=== PATIENT | female | born 1985 | race Caucasian/White ===

== ENCOUNTER 2023-09-10 07:09 | Day surgery (SDC) | payer OTHER ==
[2023-09-05 14:35] VITALS: BMI 33.7
[2023-09-10 07:41] VITALS: RESP 16; TEMP 97
[2023-09-10] MEDS ORDERED: LIDOCAINE 1% (10MG/ML) FOR IV START INTRADERMA ONE (07:45)
[2023-09-10] MEDS: LACTATED RINGERS 1,000 ML IV SCH ×2 (07:45→08:26)
[2023-09-10 07:47] LABS: Glucose,Whole Blood 123 mg/dL (70-110)
[2023-09-10] MEDS ORDERED: LIDOCAINE 1% INJ 10MG/ML (20 ML MDV) ONE (08:27)
[2023-09-10] MEDS ORDERED: PROPOFOL 10 MG/ML 20 ML VIAL IV ONE (08:27)
--- NOTE | 2023-09-10 08:30 | P.GSHP ---
History of Present Illness H&P Date: 09/10/23 Chief Complaint: GERD This is a 29-year-old female presents today for EGD. Patient's points of GERD. Past Medical History Past Medical History: Asthma, Diabetes Mellitus, GERD/Reflux Additional Past Medical History / Comment(s): ENVIRONMENTAL ALLERGIES. 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 SINUS SX Past Anesthesia/Blood Transfusion Reactions: No Reported Reaction Smoking Status: Never smoker - Past Family History Brother(s) Family Medical History: Cancer Medications and Allergies Home Medications Medication Instructions Recorded Confirmed Type Loratadine [Claritin] 10 mg PO DAILY 09/05/23 09/10/23 History Montelukast [Singulair] 10 mg PO DAILY 09/05/23 09/10/23 History Pantoprazole [Protonix] 40 mg PO DAILY 09/05/23 09/10/23 History Semaglutide [Ozempic] 0.25 mg SQ WE 09/05/23 09/05/23 History Sucralfate [Carafate] 1 gm PO TID 09/05/23 09/10/23 History Allergies Allergy/AdvReac Type Severity Reaction Status Date / Time No Known Allergies Allergy Verified 09/10/23 07:26 Surgical - Exam Vital Signs Temp Pulse Resp BP Pulse Ox 97 F L 77 16 123/84 99 09/10/23 07:35 09/10/23 07:35 09/10/23 07:35 09/10/23 07:35 09/10/23 07:35 - General well developed, well nourished, no distress, moderate distress - Eyes PERRL - ENT normal pinna - Neck no masses - Respiratory normal expansion - Cardiovascular Rhythm: regular - Abdomen Abdomen: soft, non tender Results - Labs Abnormal Lab Results - Last 24 Hours (Table) 09/10/23 Range/Units 07:40 POC Glucose (mg/dL) 123 H (70-110) mg/dL Assessment and Plan Assessment: GERD. We'll perform EGD.
--- NOTE | 2023-09-10 08:40 | P.OP ---
Date of Procedure: 09/10/23 Preoperative Diagnosis: GERD Postoperative Diagnosis: Antral gastritis Sliding hiatal hernia Mild esophagitis Procedure(s) Performed: EGD Anesthesia: MAC Surgeon: Alek Bryant Pathology: other (Antrum, esophagus) Condition: stable Disposition: PACU Description of Procedure: The patient's placed on the endoscopy table in the lateral position. He received IV sedation. The gastro-/oropharynx passed in the esophagus and stomach. Scope some placed through the pylorus. The first and second portion of the duodenum appeared normal. Scope was then brought back the antrum and this appeared mildly inflamed. A biopsies performed. Scope was then retroflexed and there was a moderate sliding hiatal hernia. The GE junction was at 38 cm. The distal esophagus appeared mildly inflamed. A biopsies was performed. The proximal esophagus appeared normal. Scope was then withdrawn for patient.
[2023-09-10 09:21] VITALS: BP 108/66; PULSE 88
== END 2023-09-10 09:23 | disposition home or self-care (01) ==
LOC: ORWHC2ENDO 07:09
PROVIDERS: ATTEND Surgery
DX: K29.50 Unspecified chronic gastritis without bleeding (principal); K21.00 Gastro-esophageal reflux disease with esophagitis, without bleeding; K44.9 Diaphragmatic hernia without obstruction or gangrene; J45.909 Unspecified asthma, uncomplicated; E11.9 Type 2 diabetes mellitus without complications; Z79.899 Other long term (current) drug therapy; Z79.84 Long term (current) use of oral hypoglycemic drugs
CPT/HCPCS: 81025; 88305; 43239; J2001; J2704

== ENCOUNTER → 2023-11-13 | Outpatient (CLI) | payer OTHER ==
[2023-11-13 12:16] LABS: Basophils # (A) 0.04 X 10*3/uL (0.00-0.10); Basophils % (A) 0.5 %; Eosinophils # (A) 0.16 X 10*3/uL (0.04-0.35); Eosinophils % (A) 2.1 %; HCT 37.8 % (37.2-46.3); HGB 11.7 g/dL (12.0-15.0); Lymphocytes # (A) 2.21 X 10*3/uL (0.90-5.00); Lymphocytes % (A) 28.7 %; MCH 25.3 pg (27.0-32.0); MCV 81.8 FL (80.0-97.0); Mean Platelet Volume 10.9 FL (9.5-12.2); Monocytes # (A) 0.46 X 10*3/uL (0.20-1.00); NRBC Per 100 WBC 0 X 10*3/uL (0.00-0.01); Neutrophils # (A) 4.81 X 10*3/uL (1.80-7.70); Neutrophils % (A) 62.4 %; Platelet Count 253 X 10*3/uL (140-440); RBC 4.62 X 10*6/uL (4.10-5.20); RDW 13.8 % (11.5-14.5)
== END | disposition home or self-care (01) ==
LOC: LABPAT 07:32
PROVIDERS: ATTEND Surgery
DX: Z01.818 Encounter for other preprocedural examination (principal); I49.8 Other specified cardiac arrhythmias; K21.9 Gastro-esophageal reflux disease without esophagitis
CPT/HCPCS: 36415; 85025; 93005

== ENCOUNTER 2023-11-19 06:40 | Day surgery (SDC) | payer OTHER ==
[~2023-11-19 06:40] MED LIST: LIDOCAINE 1% (10MG/ML) FOR IV START INTRADERMA PRN
[2023-11-19] MEDS ORDERED: HYDROmorphone 0.5 MG/0.5 ML SYRINGE IVP PRN (07:00)
[2023-11-19] MEDS: LACTATED RINGERS 1,000 ML IV SCH (07:41)
[2023-11-19] MEDS: HEPARIN SODIUM,PORCINE 5,000 UNIT/ML 1 ML VIAL SQ PRN (07:53)
[2023-11-19] MEDS: ONDANSETRON 4 MG/2 ML VIAL IVP ONE (07:53)
[2023-11-19] MEDS: DEXAMETHASONE SOD PHOSPHATE 4 MG/ML 1 ML VIAL IV ONE (07:53)
[2023-11-19] MEDS: ACETAMINOPHEN TAB 500 MG TAB PO PRN (07:53)
[2023-11-19] MEDS: FAMOTIDINE 20 MG/2 ML VIAL IVP ONE (07:53)
[2023-11-19 07:54] LABS: Glucose,Whole Blood 125 mg/dL (70-110)
[2023-11-19] MEDS ORDERED: NEOSTIGMINE 1 MG/ML 10 ML VIAL ONE (08:32)
[2023-11-19] MEDS ORDERED: KETOROLAC 15 MG/ML 1 ML VIAL ONE (08:32)
[2023-11-19] MEDS ORDERED: SUCCINYLCHOLINE CHLORIDE 200 MG/10 ML VIAL IV ONE (08:32)
[2023-11-19] MEDS ORDERED: PROPOFOL 10 MG/ML 20 ML VIAL IV ONE (08:32)
[2023-11-19] MEDS ORDERED: fentaNYL (PF) 50 MCG/ML 2 ML AMP ONE (08:32)
[2023-11-19] MEDS ORDERED: GLYCOPYRROLATE 0.2 MG/ML 2 ML VIAL ONE (08:32)
[2023-11-19] MEDS ORDERED: LIDOCAINE 1% INJ 10MG/ML (20 ML MDV) ONE (08:32)
[2023-11-19] MEDS ORDERED: ROCURONIUM 10 MG/ML (5 ML VIAL) IV ONE (08:32)
[2023-11-19] MEDS ORDERED: MIDAZOLAM 2 MG/2 ML VIAL ONE (08:32)
[2023-11-19] MEDS: BUPIVACAINE (PF) 0.25% 30 ML VIAL SQ ONE (08:37)
--- NOTE | 2023-11-19 09:46 | P.OP ---
Date of Procedure: 11/19/23 Preoperative Diagnosis: GERD Postoperative Diagnosis: GERD Procedure(s) Performed: laparoscopic Rowena fundoplication Anesthesia: WINIFRED Surgeon: Alek Bryant Estimated Blood Loss (ml): 5 Pathology: none sent Condition: stable Disposition: PACU Description of Procedure: HarThe patient was placed on the operating table in the supine position. The patient received general anesthesia. And was placed in dorsal lithotomy position. The patient was prepped and draped in the usual sterile fashion. The skin incision sites were anesthetized with 1% local Xylocaine. The skin was incised in the left periumbilical area and then using a blade less 5 mm trocar under direct visualization panel cavity was entered. After adequate insufflation the laparoscope was then placed into the peritoneal cavity. Next a 5 mm trochars placed in the right epigastric position. Another 5 millimeter trocar the right lateral position. Another 5 millimeter trocar in the left lateral position a 5 mm trocar is placed in the left epigastric position. And then the initial 5 mm trocar was exchanged for a 10 mm trocar. The left lateral lobe liver was retracted. The hernia was seen. The crural defect was then dissected using the Harmonic scissors device. A 360 crural dissection was performed the esophagus stomach was reduced back into the peritoneal Cavity. The crural defect was then closed using 2-0 Ethibond suture. Next the fundus of the stomach was mobilized using the Maxwell scissors device. and then a 58- [place]i bougie dilator was placed oropharynx passed into the esophagus and stomach the fundal plication wrap was then performed by grasping the fundus post eriorly and bringing it around the esophagus and stomach fundoplication was then performed using 2-0 Ethibond suture. Care was taken that the fundal location rested over top of the intra-abdominal esophagus. There was no injury seen to the stomach or esophagus. The dilator was then withdrawn. The abdomen was irrigated there is no bleeding seen. The trochars were then withdrawn and then skin incision sites were closed using 3-0 Monocryl suture Steri-Strips are applied. Patient thought procedure well and sent to recovery room in stable condition.
[2023-11-19 10:32] LABS: Glucose,Whole Blood 178 mg/dL (70-110)
[2023-11-19 12:01] VITALS: RESP 16
[2023-11-19 12:33] LABS: Glucose,Whole Blood 165 mg/dL (70-110)
[2023-11-19] MEDS: METOCLOPRAMIDE 5 MG/ML 2 ML VIAL IVP SCH (13:01)
[2023-11-19] MEDS: D5-0.45% NACL WITH KCL 20MEQ/L 1,000 ML IV SCH (13:01)
[2023-11-19] MEDS: HYDROmorphone 1 MG/ML 1 ML SYRINGE IVP PRN (13:10)
[2023-11-19] MEDS: SCOPOLAMINE 1 MG/72 HR PATCH TRANSDERM ONE (13:53)
[2023-11-19] MEDS: droPERidol 5 MG/2 ML VIAL IVP ONE (13:53)
[2023-11-19] MEDS ORDERED: DEXTROSE 50% SYRINGE 50 ML IVP PRN ×2 (16:10)
[2023-11-19 17:31] LABS: Glucose,Whole Blood 213 mg/dL (70-110)
[2023-11-19] MEDS: INSULIN ASPART (NovoLOG) 100 UNIT/ML VIAL SQ SCH (18:07)
[2023-11-19] MEDS: PANTOPRAZOLE 40 MG/10 ML VIAL IVP SCH (18:08)
[2023-11-19 20:10] LABS: Glucose,Whole Blood 186 mg/dL (70-110)
--- NOTE | 2023-11-20 03:48 | CONS ---
CONSULTATION Covering for Dr. Mohamud. REASON FOR CONSULTATION: Advice regarding diabetes mellitus and other medical issues, requested by Surgery. HISTORY OF PRESENT ILLNESS: This is a 38-year-old woman with a past medical history of multiple medical problems including diabetes mellitus, underwent laparoscopic Rowena fundoplication for GERD. The patient has been closely monitored. No chest pain. No palpitations. No fever. The blood sugar is 165. PAST MEDICAL HISTORY: Reviewed and include asthma, GERD, diabetes mellitus, type 2. MEDICATIONS: Carafate, dose and rest of medications reviewed. ALLERGIES: None. FAMILY HISTORY: History of brain cancer in family. SOCIAL HISTORY: No history of smoking, alcohol. REVIEW OF SYSTEMS: Fourteen-point review is negative except as mentioned earlier. PHYSICAL EXAMINATION: VITAL SIGNS: Pulse is 96, blood pressure 161/84. HEENT: Conjunctivae normal. NECK: No JVD. CARDIOVASCULAR: Breath sounds diminished at the bases. Scattered rhonchi. ABDOMEN: Soft. Status post surgery. LEGS: No edema. NERVOUS SYSTEM: Nonfocal. LABORATORY DATA: Glucose 165. ASSESSMENT: 1. Status post laparoscopic Rowena fundoplication for gastroesophageal reflux disease. 2. Diabetes mellitus, type 2. 3. Asthma. 4. History of gastroesophageal reflux disease. RECOMMENDATIONS AND DISCUSSION: This 38-year-old woman presented after surgery. At this time, I recommend to continue current medications and symptomatic treatment. Recommend Accu-Cheks a.c. and insulin coverage. Resume home medications. DVT prophylaxis. Incentive spirometry. We will follow the patient closely with you. Dr. Mohamud will follow tomorrow. MMODL / IJN: [id number] /
[2023-11-20 07:42] LABS: Glucose,Whole Blood 137 mg/dL (70-110)
[2023-11-20] MEDS ORDERED: HYDROcodone/APAP 5-325MG 1 EACH TAB PO PRN (08:25)
[2023-11-20 08:42] VITALS: BP 126/78; PULSE 89; TEMP 98.6
[2023-11-20] MEDS: ENOXAPARIN 40 MG/0.4 ML SYRINGE SQ SCH (08:45)
--- NOTE | 2023-11-20 11:48 | P.CONS ---
History of Present Illness - Reason for Consult Consult date: 11/20/23 Medical management Requesting physician: Alek Bryant - Chief Complaint Gastroesophageal reflux disease status post laparoscopic Rowena fundoplicat - History of Present Illness This is a 38-year-old female with past medical history significant for morbid obesity, BMI 35, gastroesophageal reflux disease, diabetes melitis, allergy induced asthma, status post laparoscopic Niesen fundoplication. Tolerated procedure well. Tolerating Niesen clear liquid diet. Blood sugars controlled. Hemoglobin A1c 6.2. Denies nausea vomiting or diarrhea. Reports no bowel movement, passing flatus. Decreased minimal shoulder pain. Ambulating, tolerating exertion well with no lightheadedness dizziness or focal deficits. Denies chest pain, palpitations or shortness of breath. Maintaining O2 sats in the high 90s on room air. Afebrile. Review of Systems ROS Statement: Those systems with pertinent positive or pertinent negative responses have been documented in the HPI. ROS Other: All systems not noted in ROS Statement are negative. Past Medical History Past Medical History: Asthma, Diabetes Mellitus, GERD/Reflux Additional Past Medical History / Comment(s): environmental allergies, thyroid nodules, hiatal hernia, Type II DM History of Any Multi-Drug Resistant Organisms: None Reported Additional Past Surgical History / Comment(s): teeth extraction as a teen, sinus sx Past Anesthesia/Blood Transfusion Reactions: No Reported Reaction Smoking Status: Never smoker - Past Family History Brother(s) Family Medical History: Cancer Additional Family Medical History / Comment(s): brain cancer Mother Family Medical History: Hypertension Father Family Medical History: Hypertension Medications and Allergies Home Medications Medication Instructions Recorded Confirmed Type Loratadine [Claritin] 10 mg PO DAILY PRN 09/05/23 11/19/23 History Montelukast [Singulair] 10 mg PO DAILY PRN 09/05/23 11/19/23 History Pantoprazole [Protonix] 40 mg PO QAM 09/05/23 11/19/23 History Semaglutide [Ozempic] 0.25 mg SQ WE 09/05/23 11/19/23 History Sucralfate [Carafate] 1 gm PO TID 09/05/23 11/19/23 History Acetaminophen Tab [Tylenol] 1,000 mg PO Q6HR PRN 11/13/23 11/19/23 History HYDROcodone/APAP 5-325MG [[place] 1 tab PO Q6HR PRN 2 Days #5 tab 11/20/23 Rx 5-325] Allergies Allergy/AdvReac Type Severity Reaction Status Date / Time No Known Allergies Allergy Verified 11/19/23 07:39 Physical Exam Vitals: Vital Signs Temp Pulse Resp BP Pulse Ox 11/20/23 07:37 98.6 F 89 16 126/78 97 11/20/23 01:22 98.0 F 80 16 113/71 95 11/19/23 20:00 16 11/19/23 18:58 98.0 F 91 16 112/71 94 L 11/19/23 13:44 96 137/84 97 11/19/23 13:38 75 124/80 93 L 11/19/23 12:38 93 119/77 96 11/19/23 12:23 78 118/76 94 L 11/19/23 12:08 79 116/75 93 L 11/19/23 11:53 73 119/78 93 L 11/19/23 11:37 97.9 F 80 16 124/82 94 L Intake and Output 11/19/23 11/20/23 11/20/23 22:59 06:59 14:59 Other: Voiding Method Toilet # Voids 1 PHYSICAL EXAM: VITAL SIGNS: [As above] GENERAL: Alert and oriented x 3, sitting up in bed, no acute distress HEENT: Normocephalic, conjunctivae normal. eyes normal. NECK: Supple, no JVD. CARDIOVASCULAR: S1, S2 regular.. No murmur RESPIRATION: Unlabored, equal air entry, essentially clear, breath sounds diminished in the bases. No rhonchi or crackles. No bronchial breathing. ABDOMEN: Soft, status post surgery. No guarding. No rigidity LEGS: No edema. no swelling NERVOUS SYSTEM: Cranial N 2-12 grossly normal. No focal deficits. Strength and sensation grossly intact. Skin: Warm and dry, no rash Results Labs: Abnormal Lab Results - Last 24 Hours (Table) 11/19/23 11/19/23 11/19/23 Range/Units 12:30 17:29 20:08 POC Glucose (mg/dL) 165 H 213 H 186 H (70-110) mg/dL Hemoglobin A1c (<=6.0) % 11/20/23 11/20/23 Range/Units 07:42 07:59 POC Glucose (mg/dL) 137 H (70-110) mg/dL Hemoglobin A1c 6.2 H (<=6.0) % Assessment and Plan Assessment: Gastroesophageal reflux disease status post laparoscopic Rowena fundoplication Morbid obesity, BMI 35 Chronic allergy induced asthma, stable Diabetes mellitus, hemoglobin A1c 6.2 Plan: Continue on current medication regimen ,monitoring and symptomatic treatment. Aggressive pulmonary toileting with incentive spirometer reinforced. Increase ambulation as tolerated. Pain management/DVT prophylaxis as per general surgery. PPI for DVT prophylaxis. Significant clinical improvement. Discharge planning in progress as per general surgery. Follow-up with PCP in 2 weeks. The impression and plan of care has been dictated as directed. : I performed a history and examination of this patient, discussed the same with the dictator. I agree with the dictator's note ,documented as a scribe. Any additional findings or plans will be noted.
--- NOTE | 2023-11-20 12:45 | P.DS ---
Providers Expected date of discharge: 11/20/23 Attending physician: Alek Bryant Consults: 11/19/23 09:46 Consult Physician Routine Consulting Provider: Gray Mohamud Consult Reason/Comments: medical management Do you want consulting provider notified?: Yes Primary care physician: Brenna Mohamud Hospital Course: Discharge diagnosis 1. GERD Hospital course This is a 38-year-old female with a known history of GERD status post laparoscopic Niesen fundoplication. Patient tolerated surgery well. She is tolerating diet. Her pain is controlled. She is afebrile. She has been up and ambulating. She is stable for discharge. Please refer to chart for any further details. Physician Title Camera Operator note has been reviewed by physician. Signing provider agrees with the documented findings, assessment, and plan of care. Patient Condition at Discharge: Stable Plan - Discharge Summary Discharge Rx Participant: Yes New Discharge Prescriptions: New HYDROcodone/APAP 5-325MG [[place] 5-325] 1 tab PO Q6HR PRN 2 Days #5 tab PRN Reason: Pain Continue Sucralfate [Carafate] 1 gm PO TID Semaglutide [Ozempic] 0.25 mg SQ WE Acetaminophen Tab [Tylenol] 1,000 mg PO Q6HR PRN PRN Reason: Pain Pantoprazole [Protonix] 40 mg PO QAM Montelukast [Singulair] 10 mg PO DAILY PRN PRN Reason: Allergy Symptoms Loratadine [Claritin] 10 mg PO DAILY PRN PRN Reason: Allergy Symptoms Discharge Medication List Loratadine [Claritin] 10 mg PO DAILY PRN 09/05/23 [History] Montelukast [Singulair] 10 mg PO DAILY PRN 09/05/23 [History] Pantoprazole [Protonix] 40 mg PO QAM 09/05/23 [History] Semaglutide [Ozempic] 0.25 mg SQ WE 09/05/23 [History] Sucralfate [Carafate] 1 gm PO TID 09/05/23 [History] Acetaminophen Tab [Tylenol] 1,000 mg PO Q6HR PRN 11/13/23 [History] HYDROcodone/APAP 5-325MG [[place] 5-325] 1 tab PO Q6HR PRN 2 Days #5 tab 11/20/23 [Rx] Follow up Appointment(s)/Referral(s): Gray Mohamud MD [STAFF PHYSICIAN] - 12/03/23 2:45 pm (You will see Mell.) Alek Bryant MD [STAFF PHYSICIAN] - 11/29/23 2:00 pm () Patient Instructions/Handouts: Hydrocodone/Acetaminophen (By mouth), Full Liquid Diet (DC) Activity/Diet/Wound Care/Special Instructions: No driving while taking [place] No lifting over 10 pounds You may shower. No soaking or tub baths for 2 weeks Very light activity until you are reevaluated at your follow up appointment with your surgeon Full liquid dietx 2 weeks. No straws or carbonated beverages Discharge Disposition: HOME SELF-CARE
[2023-11-20 12:49] LABS: Glucose,Whole Blood 96 mg/dL (70-110)
== END 2023-11-20 13:40 | disposition home or self-care (01) ==
LOC: OR 06:40 → 5NMEDONC 10:08 → OR 11-20 13:40
PROVIDERS: ATTEND Surgery
DX: K21.00 Gastro-esophageal reflux disease with esophagitis, without bleeding (principal); K44.9 Diaphragmatic hernia without obstruction or gangrene; J45.909 Unspecified asthma, uncomplicated; E11.9 Type 2 diabetes mellitus without complications; E07.9 Disorder of thyroid, unspecified; Z82.49 Family history of ischemic heart disease and other diseases of the circulatory system
CPT/HCPCS: 81025; 83036; 43281; J1644; J1100; J2765 ×2; J0690; J2405; J1650; J3490; J1170; C9113 ×2; J0665

== ENCOUNTER → 2023-12-19 | Outpatient (CLI) | payer OTHER ==
--- NOTE | 2023-12-20 13:37 | NM ---
EXAMINATION TYPE: NM thyroid image w uptake DATE OF EXAM: 12/20/2023 COMPARISON: NONE CLINICAL INDICATION: Female, 38 years old with history of E04.1 NONTOXIC SINGLE THYROID NODULE; TECHNIQUE: Thyroid iodine uptake is calculated and images performed after the oral administration of 295 uCi 1-123 Capsule. FINDINGS: There is normal distribution of activity throughout the gland. The 4 hour iodine uptake is calculated at 21.1% (normal range 8-14%). The 24-hour iodine uptake is calculated at 37.0% (normal r sally 15-35%). Focal radiotracer uptake within the medial aspect of the right thyroid gland. IMPRESSION: Hot right upper medial thyroid nodule correlate for hyperfunctioning adenoma.
== END | disposition home or self-care (01) ==
LOC: RADNMMAIN 09:43
PROVIDERS: ATTEND Family Medicine
DX: E04.1 Nontoxic single thyroid nodule (principal)
CPT/HCPCS: 78014; A9516

== ENCOUNTER 2024-01-16 07:32 | Day surgery (SDC) | payer OTHER ==
[2024-01-16 08:57] VITALS: TEMP 98.3
--- NOTE | 2024-01-16 09:27 | US ---
ULTRASOUND GUIDED FNA THYROID BIOPSY: CLINICAL HISTORY: Left thyroid nodule FINDINGS: The procedure was explained to the patient. The risks, complications, benefits and alternatives were discussed and any questions were answered. Informed consent was obtained. Patient was placed supin e on the ultrasound table and prepped and draped in the usual sterile fashion. Utilizing a 25 gauge needle, five passes were made into the requested left thyroid nodule. Patient was stable throughout the procedure. Pathology is pending. All elements of maximal barrier technique were utilized. IMPRESSION: 1. Successful ultrasound guided FNA thyroid biopsy.
[2024-01-16 09:52] VITALS: BP 117/75; PULSE 81; RESP 16
== END 2024-01-16 09:20 | disposition home or self-care (01) ==
LOC: RADPROMAIN 07:32
PROVIDERS: ATTEND Surgery
DX: E04.1 Nontoxic single thyroid nodule (principal)
CPT/HCPCS: 10005; 88173; 88305

== ENCOUNTER 2024-02-25 06:42 | Day surgery (SDC) | payer OTHER ==
[2024-02-19 14:37] VITALS: BMI 33.5
[2024-02-25] MEDS ORDERED: LIDOCAINE 1% (10MG/ML) FOR IV START INTRADERMA PRN (07:16)
[2024-02-25] MEDS ORDERED: METOCLOPRAMIDE 5 MG/ML 2 ML VIAL IVP PRN (07:16)
[2024-02-25 07:34] LABS: Glucose,Whole Blood 158 mg/dL (70-110)
[2024-02-25] MEDS: LACTATED RINGERS 1,000 ML IV SCH ×2 (07:40→14:50)
[2024-02-25] MEDS: ACETAMINOPHEN TAB 500 MG TAB PO PRN (07:41)
[2024-02-25] MEDS: ONDANSETRON 4 MG/2 ML VIAL IVP ONE (07:41)
[2024-02-25] MEDS: HEPARIN SODIUM,PORCINE 5,000 UNIT/ML 1 ML VIAL SQ PRN (07:41)
[2024-02-25] MEDS: DEXAMETHASONE SOD PHOSPHATE 4 MG/ML 1 ML VIAL IV ONE (07:41)
[2024-02-25] MEDS: SCOPOLAMINE 1 MG/72 HR PATCH TRANSDERM STA (07:42)
[2024-02-25] MEDS: IV FLUID CONTINUATION 1,000 ML IV ONE ×2 (07:46→10:29)
[2024-02-25] MEDS ORDERED: LIDOCAINE 1% INJ 10MG/ML (20 ML MDV) ONE (09:08)
[2024-02-25] MEDS ORDERED: KETAMINE HCL IN 0.9 % NACL 50 MG/5 ML SYRINGE ONE (09:08)
[2024-02-25] MEDS ORDERED: SUCCINYLCHOLINE CHLORIDE 200 MG/10 ML VIAL IV ONE (09:08)
[2024-02-25] MEDS ORDERED: fentaNYL (PF) 50 MCG/ML 2 ML AMP ONE (09:08)
[2024-02-25] MEDS ORDERED: MIDAZOLAM 2 MG/2 ML VIAL ONE (09:08)
[2024-02-25] MEDS ORDERED: LIDOCAINE 4% LTA KIT (4 ML) TOPICAL ONE (09:08)
[2024-02-25] MEDS ORDERED: ceFAZolin 1 GM/50 ML BAG (PMX) ONE (09:08)
[2024-02-25] MEDS ORDERED: HYDROmorphone (PF) 1 MG/ML ONE (09:08)
[2024-02-25] MEDS ORDERED: PROPOFOL 10 MG/ML 20 ML VIAL IV ONE (09:08)
[2024-02-25] MEDS ORDERED: diphenhydrAMINE 50 MG/ML 1 ML VIAL ONE (09:08)
[2024-02-25] MEDS ORDERED: PHENYLEPHRINE-0.9% NACL SYG 1,000 MCG/10 ML SYRINGE ONE (09:08)
[2024-02-25] MEDS ORDERED: GLYCOPYRROLATE 0.2 MG/ML 2 ML VIAL ONE (09:08)
[2024-02-25] MEDS: SODIUM CHLORIDE 0.9% 50 ML with ceFAZolin 2 GM IV ONE (09:13)
[2024-02-25] MEDS: LIDOCAINE 1%-EPI 1:100,000 20 ML VIAL SQ ONE (10:49)
[2024-02-25 11:22] LABS: Glucose,Whole Blood 194 mg/dL (70-110)
[2024-02-25] MEDS ORDERED: NALOXONE 0.4 MG/ML 1 ML VIAL IV PRN (11:22)
--- NOTE | 2024-02-25 11:22 | P.OP ---
Date of Procedure: 02/25/24 Preoperative Diagnosis: left thyroid nodule Postoperative Diagnosis: left thyroid nodule Procedure(s) Performed: left thyroidectomy Anesthesia: MAC Surgeon: Alek Bryant Estimated Blood Loss (ml): 50 Pathology: other (left thyroid) Condition: stable Disposition: PACU Operative Findings: 8 cm left thyroid nodule Description of Procedure: the patient's placed on the operating table in the supine position. She received general endotracheal tube anesthesia. Hher neck was prepped and draped in the usual sterile fashion. The patient's placed in the beachchair position. Her neck was extended. A standard Goff incision was made proximal to 3 cm ab ove the sternal notch. Electrocautery was used to divide the subcutaneous tissues and platysma. The platysma flaps were then elevated. And thenWheatland nicole retractors were placed in the wound. the strap muscle divided midline using left cautery. the left thyroid was exposed. The left thyroid was quite large. It measured approximately 10 cm in diameter. There is an obvious thyroid nodule. The left thyroid was retracted inferior and then medially. And then due to the size of thyroid decided to divide the inferior thyroid vessels first. The thyroid gland was retracted cephalad. The inferior thyroid vessels were divided with 3-0 silk ties and the Harmonic scissors.next, the superior thyroid vessels were dissected. The thyroid was retracted cephalad. The superior thyroid vessels were ligated between 2-0 silk ties and divided the Harmonic scissors. The thyroid was then rotated medially. The lateral thyroid veins were divided between 3-0 silk ties and divided Harmonic scissors. The recurrent laryngeal nerve was visualized. Care was taken to preserve the nerve. The thyroid was then dissected off the trachea using Harmonic scissors. A thyroid cyst was found on the lower aspect of thyroid gland and this spontaneously drained due to traction on the thyroid gland. The thyroid lobe was then divided near the isthmus. Initially it was thought that the meniscus was being divided. However this was more of the left thyroid gland. This was suture ligated and then the isthmus was divided with the Harmonic scissors. The portion of the left thyroid gland was reattached to the specimen in the correct orientation. No parathyroid glands were visualized. The wound bed was hemostased. There is no bleeding seen. Surgicel pallor of his wound. There is no bleeding seen. This point the strap muscles reapproximated in the midline. And then the platysma was divided reapproximated with 2-0 Vicryl suture. Skin was closed 3-0 Vicryl suture. Patient top she will patient was sent to recovery room in stable condition.
[2024-02-25] MEDS: HYDROmorphone 0.5 MG/0.5 ML SYRINGE IVP PRN (12:08)
[2024-02-25] MEDS: Pre Op ABX Message 1 EACH MISC MISCELLANE ONE (14:41)
[2024-02-25] MEDS: ONDANSETRON 4 MG/2 ML VIAL IVP PRN (14:49)
[2024-02-25 15:01] VITALS: RESP 16
[2024-02-25] MEDS: HYDROmorphone 1 MG/ML 1 ML SYRINGE IVP PRN (16:30)
[2024-02-25 16:54] LABS: Glucose,Whole Blood 180 mg/dL (70-110)
[2024-02-25 20:10] LABS: Glucose,Whole Blood 227 mg/dL (70-110)
[2024-02-25] MEDS: HYDROcodone/APAP 7.5-325MG 1 EACH TAB PO PRN (20:56)
[2024-02-25] MEDS: metFORMIN 500 MG TAB PO SCH (20:56)
[2024-02-26 07:03] LABS: Glucose,Whole Blood 118 mg/dL (70-110)
[2024-02-26 07:54] VITALS: BP 125/78; PULSE 84; TEMP 98.5
[2024-02-26] MEDS: ENOXAPARIN 40 MG/0.4 ML SYRINGE SQ SCH (08:47)
[2024-02-26] MEDS ORDERED: DEXTROSE 50% SYRINGE 50 ML IVP PRN ×2 (11:58)
[2024-02-26] MEDS ORDERED: LORATADINE 10 MG TAB PO PRN (12:00)
[2024-02-26 12:02] LABS: Glucose,Whole Blood 191 mg/dL (70-110)
--- NOTE | 2024-02-26 12:22 | P.DS ---
Providers Expected date of discharge: 02/26/24 Attending physician: Alek Bryant Consults: 02/25/24 11:24 Consult Physician Routine Consulting Provider: Gray Mohamud Consult Reason/Comments: medical management Do you want consulting provider notified?: Yes Primary care physician: Brenna Mohamud [facility] Course: This is a 38-year-old female who underwent left thyroidectomy. Patient did well postop. On the day of discharge patient's vital signs are stable. Her voice was normal. She had minimal complaints of pain. Procedures: Left thyroidectomy Patient Condition at Discharge: Good Plan - Discharge Summary Discharge Rx Participant: No New Discharge Prescriptions: New Ibuprofen [Motrin] 600 mg PO Q6HR PRN #40 tab PRN Reason: Pain Acetaminophen Tab [Tylenol] 650 mg PO Q6H #30 tab No Action Acetaminophen Tab [Tylenol] 1,000 mg PO Q6HR PRN PRN Reason: Pain Loratadine [Claritin] 10 mg PO DAILY PRN PRN Reason: Allergy Symptoms metFORMIN HCL [Glucophage] 500 mg PO BID Melatonin 5 mg PO HS Discharge Medication List Loratadine [Claritin] 10 mg PO DAILY PRN 09/05/23 [History] Acetaminophen Tab [Tylenol] 1,000 mg PO Q6HR PRN 11/13/23 [History] metFORMIN HCL [Glucophage] 500 mg PO BID 01/09/24 [History] Melatonin 5 mg PO HS 02/19/24 [History] Acetaminophen Tab [Tylenol] 650 mg PO Q6H #30 tab 02/26/24 [Rx] Ibuprofen [Motrin] 600 mg PO Q6HR PRN #40 tab 02/26/24 [Rx] Follow up Appointment(s)/Referral(s): Gray Mohamud MD [STAFF PHYSICIAN] - 03/03/24 9:15 am Alek Bryant MD [STAFF PHYSICIAN] - 03/06/24 3:00 pm Patient Instructions/Handouts: *Surgery [facility] - Scopalamine Patch Instructions, Partial Thyroidectomy (DC)
[2024-02-26] MEDS: INSULIN ASPART (NovoLOG) 100 UNIT/ML VIAL SQ SCH (12:33)
[2024-02-26] MEDS: PANTOPRAZOLE 40 MG/10 ML VIAL IVP SCH (12:33)
--- NOTE | 2024-02-26 14:05 | P.CONS ---
History of Present Illness - Reason for Consult Consult date: 02/26/24 Medical management Requesting physician: Alek Bryant - Chief Complaint Left thyroid nodule status post left thyroidectomy - History of Present Illness This is a 38-year-old female with past medical history significant for recent laparoscopic Niesen fundoplication 12/11,morbid obesity, gastroesophageal reflux disease, diabetes melitis, allergy induced asthma, status post left thyroidectomy, secondary to left thyroid nodule biopsy reporting atypia, afirma molecular genomic study suggested a risk of cancer approximately 50%. Tolerated procedure well. Denies chest pain, palpitations or shortness of breath. Maintaining O2 sats in the high 90s on room air. Denies lightheadedness, dizziness or focal deficits. Positive diet intake, reports mild nausea, no emesis. Afebrile. Blood sugars better controlled. Pain controlled. Review of Systems ROS Statement: Those systems with pertinent positive or pertinent negative responses have been documented in the HPI. ROS Other: All systems not noted in ROS Statement are negative. Past Medical History Past Medical History: Asthma, Diabetes Mellitus, GERD/Reflux, Thyroid Disorder Additional Past Medical History / Comment(s): Seasonal alg, hiatal hernia, thyroid nodules History of Any Multi-Drug Resistant Organisms: None Reported Additional Past Surgical History / Comment(s): ORAL SX X 2 IN [employer]. SINUS SX, previous thyroid biopsy pateint,Rowena fundoplication Past Anesthesia/Blood Transfusion Reactions: No Reported Reaction Additional Past Anesthesia/Blood Transfusion Reaction / Comm: no hx blood transfusion Smoking Status: Never smoker - Past Family History Brother(s) Family Medical History: Cancer Additional Family Medical History / Comment(s): brain CA Mother Family Medical History: Hypertension Father Family Medical History: Hypertension Additional Family Medical History / Comment(s): heartcath Medications and Allergies Home Medications Medication Instructions Recorded Confirmed Type Loratadine [Claritin] 10 mg PO DAILY PRN 09/05/23 02/25/24 History Acetaminophen Tab [Tylenol] 1,000 mg PO Q6HR PRN 11/13/23 02/25/24 History metFORMIN HCL [Glucophage] 500 mg PO BID 01/09/24 02/25/24 History Melatonin 5 mg PO HS 02/19/24 02/25/24 History Acetaminophen Tab [Tylenol] 650 mg PO Q6H #30 tab 02/26/24 Rx Ibuprofen [Motrin] 600 mg PO Q6HR PRN #40 tab 02/26/24 Rx Allergies Allergy/AdvReac Type Severity Reaction Status Date / Time No Known Allergies Allergy Verified 02/25/24 07:16 Physical Exam Vitals: Vital Signs Temp Pulse Pulse Resp BP BP Pulse Ox 02/26/24 07:03 98.5 F 84 16 125/78 98 02/26/24 01:16 98.3 F 76 16 114/74 96 02/25/24 19:14 98.4 F 94 16 132/79 97 02/25/24 15:53 85 117/78 94 L 02/25/24 15:23 74 127/85 91 L 02/25/24 14:52 97.3 F L 71 16 119/81 95 02/25/24 14:00 100 17 104/63 97 02/25/24 13:30 89 16 106/70 100 02/25/24 13:15 77 16 103/66 96 02/25/24 13:00 88 16 111/44 96 02/25/24 12:45 90 16 132/63 96 02/25/24 12:30 87 15 118/56 96 02/25/24 12:15 84 14 125/57 94 L Intake and Output 02/25/24 02/26/24 02/26/24 22:59 06:59 14:59 Intake Total 250 Balance 250 Intake: Intake, IV Titration 250 Amount Lactated Ringers 1,000 ml 250 @ 125 mls/hr IV .Q8H [facility] Rx#:[id number] Other: Voiding Method Toilet Toilet # Voids 2 1 PHYSICAL EXAM: VITAL SIGNS: [As above] GENERAL: Alert and oriented x 3, sitting up in bed, no acute distress. Minimal hoarseness initially at beginning of conversing,clears with talking. HEENT: Normocephalic, conjunctivae normal. eyes normal. NECK: Supple, no JVD. Incisional site well-approximated, dry. CARDIOVASCULAR: S1, S2 regular. No murmur RESPIRATION: Unlabored, equal air entry, clear to auscultation ABDOMEN: Soft, nondistended, nontender ,no guarding. No rigidity,+BS LEGS: No edema. no swelling NERVOUS SYSTEM: Cranial N 2-12 grossly normal. No focal deficits. Strength and sensation grossly intact. Skin: Warm and dry, no rash Results Labs: Abnormal Lab Results - Last 24 Hours (Table) 02/25/24 02/25/24 02/26/24 Range/Units 16:52 20:09 07:02 POC Glucose (mg/dL) 180 H 227 H 118 H (70-110) mg/dL Assessment and Plan Assessment: Left thyroid nodule biopsy reporting atypia, afirma molecular genomic study suggested a risk of cancer approximately 50%. status post left thyroidectomy, postop day #1 Chronic allergy induced asthma, stable Diabetes mellitus, hemoglobin A1c 6.2 (12/11) Gastroesophageal reflux disease, history of recent Niesen fundoplication 12/11 Morbid obesity, BMI 35 Plan: Continue on current medication regimen ,monitoring and symptomatic treatment. NovoLog sliding scale added to med regimen, hemoglobin A1c ordered/pending. discharge planning in progress as per general surgery. Follow- up with PCP in 1 week. Thank you for the consult. The impression and plan of care has been dictated as directed. : I performed a history and examination of this patient, discussed the same with the dictator. I agree with the dictator's note ,documented as a scribe. Any additional findings or plans will be noted.
[2024-02-26] MEDS ORDERED: MELATONIN 5 MG TABLET PO SCH (21:00)
== END 2024-02-26 13:17 | disposition home or self-care (01) ==
LOC: OR 06:42 → 5NMEDONC 13:43 → OR 02-26 13:17
PROVIDERS: ATTEND Surgery
DX: E04.1 Nontoxic single thyroid nodule (principal); E11.9 Type 2 diabetes mellitus without complications; J45.998 Other asthma; Z91.09 Other allergy status, other than to drugs and biological substances; K21.00 Gastro-esophageal reflux disease with esophagitis, without bleeding; E66.01 Morbid (severe) obesity due to excess calories; Z68.35 Body mass index [BMI] 35.0-35.9, adult; K21.9 Gastro-esophageal reflux disease without esophagitis; Z79.84 Long term (current) use of oral hypoglycemic drugs; Z79.899 Other long term (current) drug therapy; Z79.85 Long-term (current) use of injectable non-insulin antidiabetic drugs
CPT/HCPCS: 81025; 82310; 88307; 60240; J1644; J1100; J0690; J2405; J1650; J1170 ×3; J2470